=== PATIENT | male | born 1985 | race Caucasian/White ===

== ENCOUNTER 2016-03-04 00:21 | Emergency (ER) | payer OTHER ==
[~2016-03-04] VITALS: Ht 172.7 cm; Wt 78.0 kg
[2016-03-04 01:07] VITALS: Ht 172.7 cm; Wt 78.0 kg
[2016-03-04] MEDS ORDERED: ONDANSETRON (ODT) 4 MG TAB ODT STA (03:38)
[2016-03-04] MEDS ORDERED: morphine 10 MG INJ IM ONE (04:00)
--- NOTE | 2016-03-04 04:09 | RADRPT ---
PROCEDURE: CT Brain without contrast. CLINICAL INDICATION: Fall. Head trauma. TECHNIQUE: Axial images from the skull base through the vertex without IV contrast. Multiplanar r eformatted images were made. Images were reviewed on a PACS workstation. The CTDIvol is 45.01 mGy and the DLP is 720.23 mGycm. One or more of the following dose reduction techniques were used: auto mated exposure control, adjustment of the mA and/or kV according to patient size, or use of iterativ e reconstruction technique. COMPARISON: None. FINDINGS: The ventricles and cisterns are normal for age. There is no evidence for territorial infarction or intracranial hemorrhage. No mass or midline shift is seen. No extra-axial fluid collection is seen . The visualized paranasal sinuses and mastoids are clear. No calvarial fracture is seen. IMPRESSION: No definite acute intracranial abnormality. RPTAT: [facility] Physician Gilbert Date Time Electronically viewed and signed by Physician Gilbert on 03/04/2016 04:09 KARINA/
--- NOTE | 2016-03-04 04:29 | ERD ---
ER Documentation Chief Complaint Date/Time DATE: 03/04/16 Chief Complaint Head injury HPI The patient is a 30-year-old male who presents to the Emergency Department with complaint of closed head injury. The patient notes tat yesterday he had his wisdom teeth removed. After the procedure, his mother drove him home. Upon arriving home, he was walking up a flight of 12 stairs, when he slipped and fell backwards, hitting the back of his scalp against the edge of a stair. His fall was witnessed. He had no loss of consciousness, no syncope, no seizure- like activity. No change in mentation. No visual changes, diplopia, blurred vision or vision loss. No dizziness, weakness, neck pain. No numbness, paresthesias or weakness of the distal extremities. He reports a throbbing pain to the site of injury, and also to the region where his teeth were recently extracted. He notes that after discharge, he was not given any medication for pain relief. He has been taking Tylenol extra strength, with no significant relief. ROS All systems reviewed and are negative except as per history of present illness. Medications Home Meds Active Scripts Acetaminophen with Codeine (Acetaminophen-Cod #3 Tablet) 1 Each Tablet, 1 TAB PO Q6H, #12 TAB Prov:LYNNE MARCUM PA-C 03/04/16 Ibuprofen* (Motrin*) 600 Mg Tab, 600 MG PO Q6, #30 TAB Prov:LYNNE MARCUM PA-C 03/04/16 Allergies Allergies: Coded Allergies: No Known Allergy (Unverified , 05/09/14) PMhx/Soc Medical and Surgical Hx: pt denies Medical Hx, pt denies Surgical Hx History of Surgery: No Anesthesia Reaction: No Hx Neurological Disorder: No Hx Respiratory Disorders: Yes (asthma) Hx Cardiac Disorders: No Hx Psychiatric Problems: No Hx Alcohol Use: Yes (socially) Hx Substance Use: Yes (weeds) Hx Tobacco Use: No Smoking Status: Never smoker Physical Exam Vitals Vital Signs Date Time Temp Pulse Resp B/P Pulse Ox O2 Delivery O2 Flow Rate FiO2 03/04/16 01:07 98.4 78 20 102/70 98 Physical Exam GENERAL: Well-developed, well-nourished, in no acute distress. HENT: Head is normocephalic, atraumatic. No hematomas. No step offs. No nasal CSF leak. Moist mucous membranes. No pharyngeal erythema or exudates. Recently extracted wisdom tooth sites without purulence. No hemotympanum. No ryder sign. EYES: EOMI; PERRL. No scleral pallor or icterus. Conjunctiva pink. No raccoon eyes. NECK: Supple. Full range of motion. No posterior midline bony tenderness. RESPIRATORY: Clear to auscultation bilaterally. CARDIOVASCULAR: Regular rate and rhythm. S1 and S2 normal. GASTROINTESTINAL: Abdomen is soft, non-tender. Non-distended. Positive bowel sounds. EXTREMITIES: No clubbing, cyanosis, or edema. Moving all extremities. Distal pulses are palpable, 2+ bilaterally. Capillary refill is less than 2 seconds. MUSCULOSKELETAL: Left lower extremity in a splint. NEUROLOGIC: The patient is awake, alert, oriented to person, place and time. Speech is fluent. Language parameters are intact. Follows commands well. Comprehension is intact. Cranial nerves II through XII are intact. Pupils are equal and reactive bilaterally. Extraocular movements are intact. There is no nystagmus. Facial sensation and facial movements are symmetrical. Uvula elevates symmetrically. Tongue is midline. Motor examination reveals 5/5 strength in bilateral upper and lower extremities. Sensory examination is grossly intact to light touch. Reflexes symmetrical. Normal [id number]-iq-[id number] testing. No visual field deficits. Vision grossly intact. Gait is observed and normal, no ataxia. PSYCHIATRIC: Appropriate; Cooperative. INTEGUMENT: Skin is clean, dry and intact. Results 24 hrs Current Medications Medications (Trade) Dose Ordered Sig/Laila Route PRN Reason Start Time Stop Time Status Last Admin Dose Admin Morphine Sulfate (morphine) 8 mg ONCE ONCE IM 03/04/16 04:00 03/04/16 04:01 DC 03/04/16 03:45 Ondansetron HCl (Zofran Odt) 4 mg ONCE STAT ODT 03/04/16 03:38 03/04/16 03:40 DC 03/04/16 03:45 Ibuprofen (Motrin) 800 mg ONCE ONCE PO 03/04/16 05:00 03/04/16 05:01 DC 03/04/16 04:38 Procedures/MDM DIAGNOSTIC TESTS AND INTERPRETATION: PROCEDURE: CT Brain without contrast. CLINICAL INDICATION: Fall. Head trauma. TECHNIQUE: Axial images from the skull base through the vertex without IV contrast. Multiplanar reformatted images were made. Images were reviewed on a PACS workstation. The CTDIvol is 45.01 mGy and the DLP is 720.23 mGycm. One or more of the following dose reduction techniques were used: automated exposure control, adjustment of the mA and/or kV according to patient size, or use of iterative reconstruction technique. COMPARISON: None. FINDINGS:The ventricles and cisterns are normal for age. There is no evidence for territorial infarction or intracranial hemorrhage. No mass or midline shift is seen. No extra-axial fluid collection is seen. The visualized paranasal sinuses and mastoids are clear. No calvarial fracture is seen. IMPRESSION:No definite acute intracranial abnormality. Physician Gilbert Date Time Electronically viewed and signed by Physician Gilbert on 03/04/2016 04 :09 MEDICAL DECISION MAKING: The patient is a 30-year-old male presenting to the Emergency Department with s/p closed head injury after falling down stairs and hitting the back of his head. He also notes that his wisdom teeth were recently extracted yesterday, and he has been experiencing significant pain to the site of the procedure. Otherwise, the patient had no significant deformity, step-offs, altered mental status, or neurologic deficits on physical examination. CT head performed revealed no acute intracranial hemorrhage. No clinical evidence of significant head injury, basilar skull fracture, intracranial bleeding, spinal cord injury or any other emergent medical condition. The patient's condition was stable throughout their stay in the emergency department without any neurologic deficits present. Upon re-evaluation , the patient reports no new complaints. Upon my review and interpretation of the patient's presentation, I believe that the patient's symptoms are most consistent with closed head injury and postoperative pain. There is no current clinical indication of any emergent medical condition. At this point, the patient is in stable condition, and no signs of altered mental status, and therefore can be discharged home with strict return precautions for signs of deteriorating or worsening condition, including vomiting, altered mental status, neurologic deficit, headache, persistent fever above 100.4 F, loss of consciousness, syncope, deformities, seizure. The patient is instructed to follow up with his primary care provider within 2-3 days for wound check, re-evaluation and further management or return to the ER sooner for any new or worsening symptoms. I shared my medical decision making and plan with the patient at length and in great detail, and they verbally understand and agree with the plan for further observation and care as an outpatient. At the time of discharge, all questions were answered. Departure Diagnosis: Primary Impression: Closed head injury Encounter type: initial encounter Qualified Code: S09.90XA - Closed head injury, initial encounter Additional Impression: Postoperative pain Condition: Stable Patient Instructions: Concussion, HEAD INJURY, No Wake-Up (Adult) Additional Instructions: Call your primary care doctor TOMORROW for an appointment during the next 2-3 days.See the doctor sooner or return here if your condition worsens before your appointment time. LYNNE MARCUM PA-C Mar 04, 2016 04:29
[2016-03-04] MEDS ORDERED: IBUP-1542 PO (04:30)
[2016-03-04] MEDS ORDERED: HYDR-906 PO (04:30)
[2016-03-04] MEDS ORDERED: ACET1TAB40 PO ×2 (04:31→04:36)
[2016-03-04] MEDS ORDERED: IBUPROFEN 800 MG TAB PO ONE (05:00)
== END 2016-03-04 04:54 | disposition home or self-care (01) ==
LOC: FTE 00:21
DX: S09.90XA Unspecified injury of head, initial encounter (principal); G89.18 Other acute postprocedural pain; K08.89 Other specified disorders of teeth and supporting structures; J45.909 Unspecified asthma, uncomplicated; R51 Headache; W10.9XXA Fall (on) (from) unspecified stairs and steps, initial encounter; Y92.9 Unspecified place or not applicable
CPT/HCPCS: 70450; 96372; J2270; Z7502; Z7610

== ENCOUNTER 2018-01-10 03:17 | Emergency (ER) | END 2018-01-10 04:03 | disposition home or self-care (01) ==